=== PATIENT | male | born 1990 | race Caucasian/White ===

== ENCOUNTER 2018-11-12 10:41 | Outpatient (CLI) | payer OTHER | END 2018-11-12 11:04 | disposition home or self-care (01) | LOC: LAB 10:41 | DX: A64 Unspecified sexually transmitted disease (principal); N34.1 Nonspecific urethritis; A56.01 Chlamydial cystitis and urethritis; D64.89 Other specified anemias; E11.9 Type 2 diabetes mellitus without complications; E78.49 Other hyperlipidemia; I10 Essential (primary) hypertension; E03.8 Other specified hypothyroidism ==